=== PATIENT | male | born 1940 | race Caucasian/White ===

== ENCOUNTER 2018-08-25 14:15 | Emergency (ER) | payer MEDICARE, OTHER ==
[~2018-08-25] VITALS: Ht 170.2 cm; Wt 75.0 kg
[2018-08-25] MEDS ORDERED: PRILOSEC OTC20 MG PO (14:27)
[2018-08-25] MEDS ORDERED: ANXIETY MEDS (14:28)
[2018-08-25] MEDS ORDERED: PATANOL0.1 % OU (14:50)
[2018-08-25 15:01] VITALS: BP 158/89
== END 2018-08-25 15:09 | disposition home or self-care (01) ==
LOC: ED 14:15
DX: J30.1 Allergic rhinitis due to pollen (principal); M19.90 Unspecified osteoarthritis, unspecified site; K21.9 Gastro-esophageal reflux disease without esophagitis; F43.10 Post-traumatic stress disorder, unspecified; E78.00 Pure hypercholesterolemia, unspecified

== ENCOUNTER 2018-08-28 21:08 | Emergency (ER) | payer MEDICARE, OTHER ==
[~2018-08-28] VITALS: Ht 170.2 cm; Wt 75.0 kg
[~2018-08-28 21:08] MED LIST: ANXIETY MEDS; PATANOL0.1 % OU; PRILOSEC OTC20 MG PO
[2018-08-28] MEDS ORDERED: BIAXIN500 MG PO (22:01)
[2018-08-28 22:50] VITALS: BP 140/83
== END 2018-08-28 22:53 | disposition home or self-care (01) ==
LOC: ED 21:08
DX: J01.90 Acute sinusitis, unspecified (principal); R09.81 Nasal congestion; R51 Headache; R05 Cough

== ENCOUNTER 2020-09-02 13:51 | Emergency (ER) | payer MEDICARE, OTHER ==
[~2020-09-02] VITALS: Ht 170.2 cm; Wt 70.0 kg
[~2020-09-02 13:51] MED LIST changes: +BIAXIN500 MG PO
[2020-09-02 16:25] VITALS: BP 152/81
== END 2020-09-02 16:25 | disposition home or self-care (01) ==
LOC: ED 13:51
DX: M79.89 Other specified soft tissue disorders (principal); M19.90 Unspecified osteoarthritis, unspecified site; K21.9 Gastro-esophageal reflux disease without esophagitis; E78.00 Pure hypercholesterolemia, unspecified